=== PATIENT | female | born 1975 | race Two or more races ===

== ENCOUNTER 2020-08-06 05:14 | Emergency (ER) | payer MEDICAID, OTHER ==
[~2020-08-06] VITALS: Ht 127 cm; Wt 93.0 kg
[2020-08-06] MEDS ORDERED: SODIUM CHLORIDE 0.9% 1,000ML IVBOLUS ONE (06:00)
[2020-08-06] MEDS ORDERED: SODIUM CHLORIDE FLUSH 10ML SYR IVF ONE (06:00)
[2020-08-06] MEDS ORDERED: ONDANSETRON 2MG/ML, 2ML IVPush ONE (06:00)
[2020-08-06 06:09] LABS: MICROSCOPIC AUTO
[2020-08-06] MEDS ORDERED: ONDANSETRON 2MG/ML, 2ML ONE (06:19)
[2020-08-06 06:26] LABS: BASOPHILS % (AUTO) 1 % (0-1); EOSINOPHILS % (AUTO) 2 % (1-7); LYMPHOCYTES % (AUTO) 15 % (22-44); MEAN CORPUSCULAR HEMOGLOBIN 25.3 pg (27.0-34.8); MEAN CORPUSCULAR HGB CONC 32.8 g/dL (32.4-35.8); MEAN PLATELET VOLUME 8.4 fL (7.4-10.4); MONOCYTES % (AUTO) 5 % (2-9); NEUTROPHILS % (AUTO) 78 % (42-75); PLATELET COUNT 372 x10^3/uL (130-400); RED BLOOD COUNT 5.11 x10^6/uL (3.82-5.3); RED CELL DISTRIBUTION WIDTH 15.5 % (9.6-15.2)
[2020-08-06 06:30] LABS: MD NO
[2020-08-06 06:32] LABS: ALBUMIN 3.2 g/dL (3.4-5.0); ANION GAP 9 mmol/L (5-15); CALCIUM 9.3 mg/dL (8.5-10.1); CHLORIDE 97 mmol/L (98-107); CREATININE 0.99 mg/dL (0.55-1.02)
--- NOTE | 2020-08-06 06:54 | NUR ---
REPORT FROM ALBERTINA
[2020-08-06 07:18] LABS: ACETONE, SERUM Negative (Negative)
[2020-08-06] MEDS ORDERED: INSULIN REGULAR 100 UNITS/ML, 3ML VIAL IVPush ONE (07:30)
[2020-08-06] MEDS ORDERED: INSULIN SINGLE DOSE, ER ONE (07:39)
--- NOTE | 2020-08-06 07:44 | NUR ---
PT IV INFILTRATED. DIFFICULT IV ACCESS, FAILED ATTEMPTS. MD AWARE. ADMIT 10 SQ INSULIN PER ORDERS
[2020-08-06] MEDS ORDERED: CEFTRIAXONE PMX 1GM/50ML 50 ML IV ONE (08:00)
[2020-08-06 08:17] LABS: ALBUMIN 3.1 g/dL (3.4-5.0); BILIRUBIN, DIRECT 0.1 mg/dL (0.1-0.2)
[2020-08-06 08:19] LABS: BILIRUBIN,INDIRECT 0.3 mg/dL (0.0-2.0); BILIRUBIN,TOTAL 0.4 mg/dL (0.2-1.0)
--- NOTE | 2020-08-06 08:34 | NUR ---
PT REFUSING NEW IV PLACEMENT, MD DOS SANTOS AT BEDSIDE DISCUSSING OPTIONS. PT WANTS TO BE DC. PT AWARE OF RISKS.
[2020-08-06 08:54] VITALS: BP 120/61
--- NOTE | 2020-08-06 08:55 | NUR ---
Patient/Caregiver given discharge instructions and they have confirmed that they understand the instructions. Patient has wheelchair. [id number]
== END 2020-08-06 08:56 | disposition home or self-care (01) ==
LOC: ED 07:22
DX: E10.65 Type 1 diabetes mellitus with hyperglycemia (principal); N30.00 Acute cystitis without hematuria
CPT/HCPCS: 36415; 80048; 80076; 81001; 82010; 82040; 82800; 82962; 84703; 85025; 87077; 87086; 96374; 96375; 99284; J1815; J2405; 87186; J7030